=== PATIENT | female | born 1975 | race Caucasian/White ===

== ENCOUNTER 2017-10-03 08:01 | Emergency (ER) | payer BC ==
[~2017-10-03] VITALS: Ht 171.4 cm; Wt 65.9 kg
[~2017-10-03 08:01] MED LIST: CIPR500T2 PO; LORT7.5T3 PO
[2017-10-03 08:05] VITALS: BP 154/90; PULSE 96; RESP 16; TEMP 97.6; O2SAT 98
[2017-10-03] MEDS ORDERED: CARB25TA9 PO (08:20)
[2017-10-03] MEDS ORDERED: SERT25TA83 PO (08:20)
[2017-10-03] MEDS ORDERED: ROTI8DIS T-DERMAL (08:20)
[2017-10-03] MEDS ORDERED: CARB50TA3 PO (08:20)
--- NOTE | 2017-10-03 08:50 | PD ---
HPI Chief Complaint: GI Complaint Time Seen by Provider: 08:47 Travel History International Travel<30 days: No Contact w/Intl Traveler<30days: No Traveled to known affect area: No History of Present Illness HPI This 41-year-old female is complaining of vomiting and epigastric pain. She says her symptoms started around 8:00 last night and have been persistent. She had eaten some homemade ravioli prior to the onset of the vomiting. She has no history of abdominal surgery. She is having mid epigastric pain which is moderate to severe and aggravated by vomiting. He has been treated for Parkinson's disease for the last 2 years. PFSH Past Medical History Diminished Hearing: No Medical other: Yes ([facility]) Tetanus Vaccination: Unknown ?: Not LMP: 2 weeks ago Social History Alcohol Use: No Tobacco Use: Yes (05/29 PPD) Substance Use: No Allergies-Medications (Allergen,Severity, Reaction): Coded Allergies: prochlorperazine (Verified Allergy, Severe, 10/03/17) pt has parkinsons promethazine (Verified Allergy, Severe, 10/03/17) pt has parkinsons Reported Meds & Prescriptions Reported Meds & Active Scripts Active Reported Neupro Patch 24 HR (Rotigotine Patch 24 HR) 8 Mg/24 Hr Patch 8 Mg T-DERMAL DAILY Carbidopa-Levodopa ER 50-200 Mg Tab 1 Tab PO DAILY Carbidopa-Levodopa 25-100 Mg Tab 3 Tab PO DIRECTED Sertraline (Sertraline HCl) 25 Mg Tab 25 Mg PO DAILY Review of Systems General / Constitutional: No: Fever, Chills Eyes: No: Diploplia, Blurred Vision HENT: No: Headaches Cardiovascular: No: Chest Pain or Discomfort Respiratory: No: Cough, Shortness of Breath Gastrointestinal: Positive: Nausea, Vomiting, Abdominal Pain, No: Diarrhea Genitourinary: No: Urgency Skin: No Rash Neurologic: Positive: Weakness, No: Dizziness Physical Exam Narrative GENERAL: Well-developed female SKIN: Focused skin assessment warm/dry. HEAD: Atraumatic. Normocephalic. EYES: Pupils equal and round. No scleral icterus. No injection or drainage. ENT: No nasal bleeding or discharge. Mucous membranes pink and moist. NECK: Trachea midline. No JVD. CARDIOVASCULAR: Regular rate and rhythm. No murmur appreciated. RESPIRATORY: No accessory muscle use. Clear to auscultation. Breath sounds equal bilaterally. GASTROINTESTINAL: Abdomen soft, there is epigastric tenderness, nondistended. Hepatic and splenic margins not palpable. MUSCULOSKELETAL: No obvious deformities. No clubbing. No cyanosis. No edema. NEUROLOGICAL: Awake and alert. No obvious cranial nerve deficits. Motor grossly within normal limits. Normal speech. PSYCHIATRIC: Appropriate mood and affect; insight and judgment normal. Data Data Last Documented VS Vital Signs Date Time Temp Pulse Resp B/P (MAP) Pulse Ox O2 Delivery O2 Flow Rate FiO2 10/03/17 09:59 92 16 122/ 98 Room Air 10/03/17 08:05 97.6 Orders Orders Urinalysis - C+S If Indicated (10/03/17 08:06) Ed Urine Pregnancytest Poc (10/03/17 08:06) Complete Blood Count With Diff (10/03/17 08:47) Comprehensive Metabolic Panel (10/03/17 08:47) Lipase (10/03/17 08:47) Sodium Chlor 0.9% 1000 Ml Inj (Ns 1000 M (10/03/17 09:00) Sodium Chlor 0.9% 1000 Ml Inj (Ns 1000 M (10/03/17 09:00) Ondansetron Inj (Zofran Inj) (10/03/17 09:00) Prochlorperazine Inj (Compazine Inj) (10/03/17 09:30) Diphenhydramine Inj (Benadryl Inj) (10/03/17 09:30) Ondansetron Inj (Zofran Inj) (10/03/17 10:00) Morphine Inj (Morphine Inj) (10/03/17 10:00) Sodium Chlorid 0.9% 500 Ml Inj (Ns 500 M (10/03/17 11:30) Ondansetron Inj (Zofran Inj) (10/03/17 11:30) Labs Laboratory Tests Test 10/03/17 08:50 White Blood Count 12.1 TH/MM3 Red Blood Count 5.54 MIL/MM3 Hemoglobin 15.9 GM/DL Hematocrit 47.7 % Mean Corpuscular Volume 86.1 FL Mean Corpuscular Hemoglobin 28.8 PG Mean Corpuscular Hemoglobin Concent 33.4 % Red Cell Distribution Width 13.1 % Platelet Count 384 TH/MM3 Mean Platelet Volume 7.7 FL Neutrophils (%) (Auto) 86.9 % Lymphocytes (%) (Auto) 7.9 % Monocytes (%) (Auto) 2.7 % Eosinophils (%) (Auto) 0.2 % Basophils (%) (Auto) 2.3 % Neutrophils # (Auto) 10.5 TH/MM3 Lymphocytes # (Auto) 1.0 TH/MM3 Monocytes # (Auto) 0.3 TH/MM3 Eosinophils # (Auto) 0.0 TH/MM3 Basophils # (Auto) 0.3 TH/MM3 CBC Comment DIFF FINAL Differential Comment Blood Urea Nitrogen 9 MG/DL Creatinine 0.62 MG/DL Random Glucose 123 MG/DL Total Protein 7.8 GM/DL Albumin 3.7 GM/DL Calcium Level 9.5 MG/DL Alkaline Phosphatase 91 U/L Aspartate Amino Transf (AST/SGOT) 21 U/L Alanine Aminotransferase (ALT/SGPT) 21 U/L Total Bilirubin 0.5 MG/DL Sodium Level 136 MEQ/L Potassium Level 4.1 MEQ/L Chloride Level 103 MEQ/L Carbon Dioxide Level 26.2 MEQ/L Anion Gap 7 MEQ/L Estimat Glomerular Filtration Rate 105 ML/MIN Lipase 126 U/L [facility] Medical Decision Making Medical Screen Exam Complete: Yes Emergency Medical Condition: Yes Medical Record Reviewed: Yes Differential Diagnosis Differential includes gastroenteritis, food poisoning, dehydration Narrative Course Patient has been given IV fluids and Zofran. She declines Compazine because of its effect on dopamine. He has had some residual nausea and has been given prolonged fluids. She is stable for discharge Diagnosis Primary Impression: Acute gastroenteritis Scripts Hydrocodone-Acetaminophen ([place]) 5 Mg-325 Mg Tab 1 TAB PO Q4H Y for PAIN, #12 TAB 0 Refills Prov: Gurwinder Miner MD 10/03/17 Ondansetron Odt (Zofran Odt) 4 Mg Tab 4 MG SL Q6HR Y for Nausea/Vomiting, #10 TAB 0 Refills Prov: Gurwinder Miner MD 10/03/17 Disposition: 01 DISCHARGE HOME Condition: Stable Gurwinder Miner MD October 03, 2017 08:50
[2017-10-03] MEDS ORDERED: ONDANSETRON HCL 4 MG/2 ML VIAL IV PUSH ONE ×3 (09:00→11:30)
[2017-10-03] MEDS ORDERED: SODIUM CHLOR 0.9% 1000 ML INJ 1,000 ML IV ONE ×2 (09:00)
[2017-10-03 09:04] LABS: AUTOMATED NEUTROPHIL # 10.5 TH/MM3 (1.8-7.7); BASOPHIL # 0.3 TH/MM3 (0-0.2); BASOPHIL % 2.3 % (0.0-2.0); EOSINOPHIL % 0.2 % (0.0-4.0); HEMATOCRIT 47.7 % (35.0-46.0); HEMOGLOBIN 15.9 GM/DL (11.6-15.3); LYMPH % 7.9 % (9.0-44.0); MEAN CELL VOLUME 86.1 FL (80.0-100.0); MEAN CORPUSCULAR HEMOGLOBIN 28.8 PG (27.0-34.0); MEAN CORPUSCULAR HGB CONC 33.4 % (32.0-36.0); MEAN PLATELET VOLUME 7.7 FL (7.0-11.0); MONO % 2.7 % (0.0-8.0); MONOCYTE # 0.3 TH/MM3 (0-0.9); NEUT % 86.9 % (16.0-70.0); PLATELET COUNT 384 TH/MM3 (150-450); RED BLOOD COUNT 5.54 MIL/MM3 (4.00-5.30); RED CELL DISTRIBUTION WIDTH 13.1 % (11.6-17.2); WHITE BLOOD COUNT 12.1 TH/MM3 (4.0-11.0)
[2017-10-03 09:14] LABS: CHLORIDE 103 MEQ/L (98-107); SODIUM (NA) 136 MEQ/L (136-145)
[2017-10-03 09:17] LABS: CALCIUM 9.5 MG/DL (8.5-10.1)
[2017-10-03 09:18] LABS: ALBUMIN 3.7 GM/DL (3.4-5.0); BICARBONATE 26.2 MEQ/L (21.0-32.0); BLOOD UREA NITROGEN 9 MG/DL (7-18); GLUCOSE,RANDOM 123 MG/DL (74-106)
[2017-10-03 09:21] LABS: ALT (GPT) 21 U/L (10-53); AST (GOT) 21 U/L (15-37); CREATININE 0.62 MG/DL (0.50-1.00); GLOMERULAR FILTRATION RATE 105 ML/MIN (>89)
[2017-10-03 09:22] LABS: TOTAL BILIRUBIN ADULT 0.5 MG/DL (0.2-1.0); TOTAL PROTEIN 7.8 GM/DL (6.4-8.2)
[2017-10-03 09:24] LABS: ALKALINE PHOSPHATASE 91 U/L (45-117)
[2017-10-03] MEDS ORDERED: diphenhydrAMINE HCL 50 MG/ML VIAL IV PUSH ONE (09:30)
[2017-10-03] MEDS ORDERED: PROCHLORPERAZINE INJ 10 MG/2 ML VIAL IV PUSH ONE (09:30)
[2017-10-03 09:59] VITALS: BP_SYST 122; PULSE 92; RESP 16; O2SAT 98
[2017-10-03] MEDS ORDERED: MORPHINE SULFATE 4 MG/ML INJ IV PUSH ONE (10:00)
[2017-10-03] MEDS ORDERED: SODIUM CHLORID 0.9% 500 ML INJ 500 ML IV ONE (11:30)
[2017-10-03] MEDS ORDERED: ZOFR4TAB3 SL (12:16)
[2017-10-03] MEDS ORDERED: NORC5TAB PO (12:16)
== END 2017-10-03 12:42 | disposition home or self-care (01) ==
LOC: PHED 08:01
DX: K52.9 Noninfective gastroenteritis and colitis, unspecified (principal); G20 Parkinson's disease; F17.200 Nicotine dependence, unspecified, uncomplicated; Z79.899 Other long term (current) drug therapy; Z88.8 Allergy status to other drugs, medicaments and biological substances
CPT/HCPCS: 80053; 83690; 85025; 96361; 96374; 96375; 96376; 99284; J1200; J2270; J2405; J7030; J7040